=== PATIENT | female | born 1975 | race Caucasian/White ===

== ENCOUNTER 2019-05-11 08:26 | Outpatient (CLI) | payer OTHER, SELFPAY ==
--- NOTE | ~2019-05-11 | US_ITS ---
EXAMINATION: US pelvic complete w TV DATE: 05/11/2019 09:09 INDICATION: Pelvic pain Comparison:No prior studies for comparison. TECHNIQUE: Multiple transabdominal and endovaginal sonographic images of the pelvis performed. FINDINGS: The uterus and ovaries are surgically absent. Note pelvic masses or fluid collections. Ther e is no free fluid in the pelvis. There are no abnormal masses seen on either side. IMPRESSION: 1. Unremarkable pelvic ultrasound post hysterectomy. Reviewed, dictated and finalized at location B. P PRESIDENT
== END 2019-05-11 08:27 | disposition home or self-care (01) ==
LOC: ANHIMG 08:38
PROVIDERS: PCP Family Medicine; Visit Provider Family Medicine
DX: R10.2 Pelvic and perineal pain (principal); M81.0 Age-related osteoporosis without current pathological fracture
CPT/HCPCS: 76830; 76856

== ENCOUNTER 2019-05-26 13:48 | Emergency (ER) | payer OTHER, SELFPAY ==
--- NOTE | ~2019-05-26 | XR_ITS ---
EXAMINATION: XR chest 2V 05/26/2019 14:23 INDICATION: Chest pain PROCEDURE: 2 view chest COMPARISON: 07/21/2016 FINDINGS: The lungs are clear. The cardiomediastinal silhouette is within normal limits. There are no pleural effusions. There is no pneumothorax suspected. IMPRESSION: 1: NO ACUTE CARDIOPULMONARY DISEASE. Reviewed, dictated and finalized at location A.
[2019-05-26 13:52] VITALS: BP 136/82; PULSE 82; RESP 20; TEMP 36.2; O2SAT 100
--- NOTE | 2019-05-26 13:54 | ECG_ITS ---
Measurements Intervals [place] Rate: 69 P: 54 [place]: 169 QRS: 11 QRSD: 113 T: 40 QT: 417 QTc: 449 Interpretive Statements SINUS RHYTHM FREQUENT ATRIAL PREMATURE COMPLEXES INTRAVENTRICULAR CONDUCTION DELAY ABNORMAL ECG Electronically Signed On 05-26-2019 15:26:20 CDT by Tree Oliveira D.O.
[2019-05-26 13:55] VITALS: O2SAT 100
[2019-05-26 14:11] LABS: Basophils Absolute Auto 0.1 K/mm3 (0.0-0.1); Basophils Percent Auto 0.6 % (0.2-1.2); Eosinophils Absolute Auto 0.1 K/mm3 (0-0.3); Eosinophils Percent Auto 0.9 % (0-4.4); Hematocrit 43.1 % (37.0-47.0); Hemoglobin 14.5 g/dL (12.0-15.0); Immature Granulocyte Absolute 0.03 K/mm3 (0.00-0.031); Immature Granulocyte Percent A 0.3 % (0-0.5); Lymphocytes Absolute Auto 3.96 K/mm3 (0.9-3.2); Lymphocytes Percent Auto 33.2 % (18.3-44.2); Mean Corpuscular HGB Conc 33.6 g/dl (32-36); Mean Corpuscular Hemoglobin 31.5 pg (26-34); Mean Corpuscular Volume 93.7 fl (80-100); Mean Platelet Volume 9.3 fl (7.4-10.4); Monocytes Absolute Auto 0.6 K/mm3 (0.1-0.6); Monocytes Percent Auto 4.8 % (2.6-8.5); Neutrophils Absolute Auto 7.2 K/mm3 (1.3-6.7); Neutrophils Percent Auto 60.2 % (45.5-73.1); Platelet Count Result 262 k/mm3 (150-375); Red Cell Distribution Width 12.6 % (11.5-14.5); White Blood Count 11.9 K/mm3 (4.5-10.0)
[2019-05-26 14:21] LABS: Prothrombin Time 12.9 Seconds (11.1-14.7)
[2019-05-26 14:22] LABS: Partial Thromboplastin Time 28.4 SECONDS (22.3-36.8)
[2019-05-26 14:23] LABS: Blood Urea Nitrogen 12 mg/dL (7-17); Carbon Dioxide 30 mmol/L (22-30); Chloride 100 mmol/L (98-107); Estimated Glomerular Filt Rate > 60; Glucose 92 mg/dL (65-105); Potassium 3.3 mmol/L (3.4-5.0); Sodium 137 mmol/L (137-145)
[2019-05-26 14:35] LABS: Troponin I < 0.012 ng/mL (0.000-0.034)
[2019-05-26 14:37] LABS: D Dimer 0.27 ug/mL (<0.48)
[2019-05-26 14:46] LABS: Amphetamine Screen Urine Negative (Negative); Barbiturate Screen Urine Negative (Negative); Benzodiazepines Screen Urine Negative (Negative); Cannabinoid Screen Urine Positive (Negative); Cocaine Screen Urine Negative (Negative); Methadone Screen Urine Negative (Negative); Opiate Screen Urine Positive (Negative); Phencyclidine Screen Urine Negative (Negative)
[2019-05-26] MEDS: ASPIRIN 81 MG CHEWABLE TABLET 324 MG PO (15:28)
--- NOTE | 2019-05-26 15:32 | ED.CHESTPAIN ---
HPI - Chest Pain General Chief Complaint: Chest Pain Stated Complaint: chest pain Time Seen by Provider: 05/26/19 13:51 Source: patient Mode of arrival: ambulatory Limitations: no limitations History of Present Illness HPI narrative: Patient is a 44-year-old female who presents to emergency department for evaluation of left-sided chest pain and pressure that began 45 minutes prior to arrival patient notes a month ago she had had a similar symptom that resolved patient on arrival to emergency department per EMS notes mild discomfort has not taken anything for her symptoms. Patient denies any URI symptoms injury or trauma nothing is made the pain better or worse. Related Data Home Medications Medication Instructions Recorded Confirmed albuterol sulfate [ProAir HFA] INHALATION 05/26/19 05/26/19 fluoxetine mg 05/26/19 furosemide 05/26/19 hydrocodone-acetaminophen 05/26/19 levothyroxine 05/26/19 trazodone 05/26/19 Allergies Allergy/AdvReac Type Severity Reaction Status Date / Time propoxyphene Allergy Mild Unknown Verified 05/26/19 13:56 Penicillins Allergy Unknown ITCHING, Verified 05/26/19 13:56 RED BLOTCHES Review of Systems Review of Systems: All systems reviewed & are unremarkable except as noted in HPI and below PMFSH Past Medical History Medical History (Updated 05/26/19 @ 18:17 by Guanako Helton PA-C) Thyroid disease Surgical History Surgical History (Updated 05/26/19 @ 15:38 by Guanako Helton PA-C) History of thyroid surgery Social History Social History Smoking status: Smoker, status unknown Second hand tobacco smoke exposure: Yes Alcohol intake: never Exam Narrative: Exam Narrative: GENERAL: Well-appearing, well-nourished, and in no acute distress. HEAD: Normocephalic, atraumatic. EYES: PERRLA and EOMI. ENT: Nares clear, no rhinorrhea or epistaxis. Mucous membranes moist. CHEST: Clear to auscultation. No respiratory distress. No wheezes rales or rhonchi HEART: Regular rate and rhythm. No murmur heard. Normal peripheral pulses. ABDOMEN: Soft, nontender, nondistended EXTREMITIES: Normal range of motion. No edema. SKIN: Warm, dry, no rash. NEURO: No focal deficits. Alert and oriented x3. Cranial nerves II through XII grossly intact PSYCH: Normal mood and affect. Course Course Emergency Course: Patient in the room aware of case findings treatment plan and diagnosis agreeing to follow-up as directed or to return if symptoms worsen or concerns. Patient resting comfortably in the room denying any pain at this time Vital Signs Vital signs: Vital Signs Temperature 97.1 F L 05/26/19 13:52 Pulse Rate 82 05/26/19 13:52 Respiratory Rate 20 05/26/19 13:52 Blood Pressure 136/82 05/26/19 13:52 Pulse Oximetry 100 05/26/19 13:52 Temperature 97.1 F L 05/26/19 13:52 Pulse Rate 70 05/26/19 15:49 Respiratory Rate 20 05/26/19 15:49 Blood Pressure 102/80 05/26/19 15:49 Pulse Oximetry 95 05/26/19 15:49 MDM - Chest Pain MDM Narrative Medical decision making narrative: Patients EKGs and labs are without significant high risk changes. Cardiac risk factors were reviewed. 2 negative troponins were obtained. Cardiology was consulted and recommends that the patient can follow-up on an outpatient basis. Patient has a heart score of 3 based on the history provided and the results obtained. patient is felt likely to be low risk for ACS and reasonable for further risk stratification testing as an outpatient. Pain was not sudden or maximal in onset without tearing or ripping. quality. No other signs or symptoms to suggest aortic dissection. A low-risk Wells criteria is noted. PE is felt to be unlikely. No pneumonia or URI symptoms were seen on evaluation today. Patient is felt to be reasonable for continued evaluation as an outpatient. Lab Data Result diagrams: 05/26/19 13:59
[2019-05-26] MEDS: NITROGLYCERIN SL 0.4 MG TABLET SUBLINGUAL ×2 (15:37→15:48)
--- NOTE | 2019-05-26 15:38 | PC.NURSE ---
PT CALLED C/O CHEST PRESSURE. 1, 0.4MG SL NITRO ADMINISTERED PER EDP ORDER, EDP MADE AWARE.
--- NOTE | 2019-05-26 15:48 | PC.NURSE ---
2nd sl nitro administered from cp 05/14. BP 102/80, hr 74.
[2019-05-26 15:49] VITALS: BP 102/80; PULSE 70; RESP 20; O2SAT 95
[2019-05-26 17:12] LABS: Alanine Aminotransferase 11 U/L (4-35); Albumin Level 4.2 g/dL (3.5-5.1); Alkaline Phosphatase 39 U/L (38-126); Aspartate Amino Transferase 19 U/L (14-36); Bilirubin,Total 0.6 mg/dL (0.2-1.3); Blood Urea Nitrogen 12 mg/dL (7-17); Calcium 8.8 mg/dL (8.4-10.2); Carbon Dioxide 30 mmol/L (22-30); Chloride 102 mmol/L (98-107); Estimated Glomerular Filt Rate > 60; Glucose 84 mg/dL (65-105); Lipase 191 U/L (23-300); Potassium 3.7 mmol/L (3.4-5.0); Sodium 138 mmol/L (137-145)
[2019-05-26 17:23] LABS: Troponin I < 0.012 ng/mL (0.000-0.034)
--- NOTE | 2019-05-26 17:36 | ECG_ITS ---
Measurements Intervals [place] Rate: 63 P: 46 [place]: 170 QRS: 4 QRSD: 100 T: 32 QT: 420 QTc: 430 Interpretive Statements SINUS RHYTHM ATRIAL PREMATURE COMPLEXES BORDERLINE ECG Electronically Signed On 05-27-2019 7:55:05 CDT by Tree Oliveira D.O.
[2019-05-26 18:27] VITALS: BP 109/70; PULSE 80; RESP 20; TEMP 36.7; O2SAT 99
== END 2019-05-26 18:29 | disposition home or self-care (01) ==
PROVIDERS: Emergency Medicine Emergency Medical Services; Emergency Provider Emergency Medicine; PCP Family Medicine
DX: R07.89 Other chest pain (principal); I45.9 Conduction disorder, unspecified; I49.1 Atrial premature depolarization
CPT/HCPCS: 36415; 71046; 80048; 80053; 80307; 83690; 84484; 85025; 85380; 85610; 85730; 93005; 99284; A9270

== ENCOUNTER 2019-09-26 01:53 | Outpatient (CLI) | payer OTHER, SELFPAY ==
[2019-09-26 18:38] LABS: SARS-CoV-2 RNA PCR Negative
== END 2019-09-26 01:54 | disposition home or self-care (01) ==
LOC: ANHCOVIDDT 01:53
PROVIDERS: PCP Family Medicine; Visit Provider Specialist
DX: Z01.812 Encounter for preprocedural laboratory examination (principal); Z11.59 Encounter for screening for other viral diseases
CPT/HCPCS: 87635; C9803; U0003

== ENCOUNTER 2019-09-28 05:36 | Day surgery (SDC) | payer OTHER, SELFPAY ==
[2019-09-28] VITALS (8 sets, daily range): BP systolic 101–119; BP diastolic 65–98; PULSE 49–67; RESP 12–23; TEMP 36.4–36.8; O2SAT 93–96; BMI 23.6
[2019-09-28 08:52] LABS: Basophils Absolute Auto 0.1 K/mm3 (0.0-0.1); Basophils Percent Auto 0.6 % (0.2-1.2); Eosinophils Absolute Auto 0.2 K/mm3 (0-0.3); Eosinophils Percent Auto 1.5 % (0-4.4); Hematocrit 41.6 % (37.0-47.0); Hemoglobin 14.2 g/dL (12.0-15.0); Immature Granulocyte Absolute 0.04 K/mm3 (0.00-0.031); Immature Granulocyte Percent A 0.4 % (0-0.5); Lymphocytes Absolute Auto 2.76 K/mm3 (0.9-3.2); Lymphocytes Percent Auto 25.5 % (18.3-44.2); Mean Corpuscular HGB Conc 34.1 g/dl (32-36); Mean Corpuscular Hemoglobin 31.5 pg (26-34); Mean Corpuscular Volume 92.2 fl (80-100); Mean Platelet Volume 9.3 fl (7.4-10.4); Monocytes Absolute Auto 0.6 K/mm3 (0.1-0.6); Monocytes Percent Auto 5.1 % (2.6-8.5); Neutrophils Absolute Auto 7.2 K/mm3 (1.3-6.7); Neutrophils Percent Auto 66.9 % (45.5-73.1); Platelet Count Result 255 k/mm3 (150-375); Red Blood Count 4.51 M/mm3 (4.2-5.4); Red Cell Distribution Width 12.7 % (11.5-14.5); White Blood Count 10.8 K/mm3 (4.5-10.0)
[2019-09-28 09:01] LABS: Prothrombin Time 12.8 Seconds (11.1-14.7)
[2019-09-28 09:05] LABS: Anion Gap 9.5 mmol/L (7-16); Blood Urea Nitrogen 15 mg/dL (7-17); Calcium 8.8 mg/dL (8.4-10.2); Carbon Dioxide 27 mmol/L (22-30); Chloride 107 mmol/L (98-107); Estimated Glomerular Filt Rate > 60; Glucose 87 mg/dL (65-105); Potassium 4.5 mmol/L (3.4-5.0); Sodium 139 mmol/L (137-145)
--- NOTE | 2019-09-28 10:17 | WPDMODSED ---
Moderate Sedation Note-Pt Data Patient Data Diagnosis: 44-year-old patient with chest pain both with and without exertion of recent onset. Chronic cigarette smoking. Stress echocardiogram done as an outpatient was echocardiographically abnormal. Present Complaint: Intermittent chest pain Procedure to be performed/Plan: left heart catheterization Allergies Allergy/AdvReac Type Severity Reaction Status Date / Time propoxyphene Allergy Mild Unknown Verified 05/26/19 13:56 Penicillins Allergy Unknown ITCHING, Verified 05/26/19 13:56 RED BLOTCHES Home Medications Medication Instructions Recorded Confirmed Type aspirin [Aspirin Low Dose] 81 mg PO DAILY #30 tablet 05/26/19 09/28/19 Rx fluoxetine mg 05/26/19 History levothyroxine 05/26/19 History alprazolam 0.5 mg PO PRN PRN 09/28/19 09/28/19 History Current Medications: Active Medications Sodium Chloride (Normal Saline Iv) 500 mls @ 100 mls/hr IV CONT .Q5H [place] Sedation/Anesthesia: No previous sedation/anesthesia problems (including family history). [facility] Past Medical History Medical History (Updated 05/27/19 @ 00:00 by Lesly Mcfadden) Thyroid disease Surgical History Surgical History (Updated 05/26/19 @ 15:38 by Guanako Helton PA-C) History of thyroid surgery Social History Social History Smoking status: Smoker, status unknown Second hand tobacco smoke exposure: Yes Alcohol intake: never Mod Sed Physical Exam Physical Exam Pre Procedural Exam: Normal: Appearance, Nose, Neck, Throat, Airway, Heart Size, Heart Rate, Heart Rhythm, Neuro Exam and Extremities and Variation: Lungs ( breath sounds moderately diminished in both lung traylor) Hours since solid foods: 12 Hours since liquid intake: 12 Internal Medicine - PN: Obj Da Vital Signs Vital Signs: Vital Signs - 24 hr 09/28/19 10:08 Temperature 36.4 C Pulse Rate 62 Respiratory Rate 14 Blood Pressure 101/67 Pulse Oximetry 96 Meds/Results Medications: Active Medications Generic Name Dose Route Start Last Admin Trade Name Freq PRN Reason Stop Dose Admin Sodium Chloride 500 mls @ 100 mls/hr 09/28/19 06:00 Normal Saline Iv IV CONT .Q5H [place] Labs CBC & Chem 7: 09/28/19 08:42 09/28/19 08:42 Labs: Laboratory Results - last 24 hr 09/28/19 09/28/19 09/28/19 08:42 08:42 08:43 WBC 10.8 H RBC 4.51 Hgb 14.2 Hct 41.6 MCV 92.2 MCH 31.5 MCHC 34.1 RDW 12.7 Plt Count 255 MPV 9.3 Immature Gran % (Auto) 0.4 Neut % (Auto) 66.9 Lymph % (Auto) 25.5 Marion % (Auto) 5.1 Eos % (Auto) 1.5 Baso % (Auto) 0.6 Lymph # (Auto) 2.76 Marion # (Auto) 0.6 Eos # (Auto) 0.2 Baso # (Auto) 0.1 Abs Immat Gran (auto) 0.04 H Absolute Neuts (auto) 7.2 H Absolute Nucleated RBC 0.0 Nucleated RBC % 0.0 PT 12.8 INR 1.0 Sodium 139 Potassium 4.5 Chloride 107 Carbon Dioxide 27 Anion Gap 9.5 BUN 15 Creatinine 0.70 Estim Creat Clear Calc Not Reportable Estimated GFR > 60 Glucose 87 Calcium 8.8 ASA Classification/Sedation ASA Classification/Sedation ASA Class: II Emergent: No Risks: Risks, benefits and alternatives explained and patient/family accepted plan for sedation. Patient re-evaluated immediately prior to sedation.
--- NOTE | 2019-09-28 10:57 | WPDCARDPROC ---
Cardiac Cath Procedure Note Date of procedure:: 09/28/19 Performing physician:: Jefferson Jaramillo MD Indication:: atypical chest pain, abnormal stress echo Brief clinical history:: this is a 44-year-old woman with a history of smoking who has been experiencing intermittent chest pain and was referred for consultation. She had a [facility]. A stress echocardiogram was done which demonstrated evidence of LV enlargement following exercise raising concern for possibility of ischemia. For this reason angiography was recommended Procedure Procedure performed:: left heart catheterization with left ventriculography and coronary angiography Angio-Seal to right femoral artery Sedation/Medication given:: fentanyl 50 mg Versed 2 mg case start time 10:40 a.m. case end time 10:51 a.m. sedation provided by Ac Viera RN, trained observer Access site:: right femoral artery Estimated blood loss:: 15-20 cc Procedure note:: patient was brought to the cardiac catheterization lab in the postabsorptive state right femoral triangle was prepared in the usual fashion anesthesia was provided with 1% lidocaine infiltrated locally. After this the common femoral artery was punctured using the modified Seldinger technique and a 5 Bangladeshi vascular sheath was placed. After this left heart catheterization was carried out. A 5 Bangladeshi angled pigtail catheter cord left-sided dynamics and inject the left ventriculogram in the AGEE projection. Following this the right coronary was injected using a 5 Bangladeshi JR4 catheter and lastly the left coronary was injected using a 5 Bangladeshi FL4 catheter. Following this cineangiograms were reviewed and the case was terminated. And cineangiogram was done of the femoral artery through the sheath in a Angio-Seal device was then deployed at the access site with good hemostasis. Patient left the labeler with no evidence of a groin hematoma and no apparent complications. Findings:: Hemodynamics: Central aortic pressure is 134/60 left ventricle 134/0 end-diastolic of 12. No gradient upon pullback across the aortic valve left ventricle: The LV is normal in size all segments contract very well the global ejection fraction visually estimated at 65% no regional wall motion abnormalities. Left main the left main coronary artery is widely patent and relatively short the LAD is a medium caliber vessel extending down to around the apex the LAD is diagonal and septal branches are smooth and angiographically normal in appearance. The circumflex is a moderate caliber vessel giving rise to the marginal branches. The circumflex system marginal branches are smooth and angiographically normal in appearance. Right coronary artery is large in caliber dominant to the posterior circulation widely patent smooth and angiographically normal in appearance. Conclusion:: 1. Right coronary dominant circulation with no evidence of coronary artery disease 2. normal left ventricular systolic function 3. Angio-Seal to right femoral artery 4. false positive stress test and noncardiac chest pain based on these findings Jefferson Jaramillo MD [facility]
--- NOTE | 2019-09-28 13:15 | SUR.PHASEII ---
Patient ambulated to bathroom and chair no complaints of pain or signs of bleeding/ hematoma.
== END 2019-09-28 14:32 | disposition home or self-care (01) ==
PROVIDERS: PCP Family Medicine; Visit Provider Specialist
PROC: 4A023N7 Measurement of Cardiac Sampling and Pressure, Left Heart, Percutaneous Approach (ICD-10-PCS; CPT 93452; principal; 2019-09-28 10:00)
DX: R07.89 Other chest pain (principal); R94.39 Abnormal result of other cardiovascular function study; F17.210 Nicotine dependence, cigarettes, uncomplicated
CPT/HCPCS: 36415; 80048; 85025; 85610; 93458; C1760; C1887; C1894; G0269; J1644; J2250; J3010; J7040

== ENCOUNTER 2021-10-15 16:25 | Outpatient (CLI) | payer OTHER, SELFPAY ==
--- NOTE | ~2021-10-15 | DEXA_ITS ---
Bone Density Report Name: MARKUS FELTCHER Age: 46 Sex: Female Ethnicity: White Date of : 1975 Indication: postmenopausal; height loss; hysterectomy; rheumatoid arthritis; Referring Provider: DILEEP, LALIT Study: Bone densitometry was performed. Exam Date: October 15, 2021 Accession number: [id number] Bone Density: Region BMD T-score Z-score Classification AP Spine(L1-L4) 0.804 -2.2 -1.6 Osteopenia Femoral Neck (Left) 0.580 -2.4 -1.8 Osteopenia Total Hip (Left) 0.759 -1.5 -1.1 Osteopenia Femoral Neck (Right) 0.588 -2.4 -1.7 Osteopenia Total Hip (Right) 0.767 -1.4 -1.0 Osteopenia Total Hip Mean 0.763 -1.5 -1.1 Osteopenia World Health Organization criteria for BMD impression classify patients as: Normal (T-score at or above -1.0), Osteopenia (T-score between -1.0 and -2.5), or Osteoporosis (T-score at or below -2.5). 10-year Fracture Risk(1): Major Osteoporotic Fracture 7.8% Hip Fracture 2.6% Reported Risk Factors: [place] (), Neck BMD=0.580, BMI=23.0, smoking, rheumatoid arthritis (1) FRAX(R) Version 3.08. Fracture probability calculated for an untreated patient. Fracture probability may be lower if the patient has received treatment. Clinical Information Provided by Patient: Smokes Has rheumatoid arthritis Has the following medical conditions: Hysterectomy, THYROIDECTOMY Patient maximum height was 67 Menopause Age: 21 Drinks caffeinated beverages Onset of menses at age 12 Number of children 2 Impression: The patient has low bone mass, based on the Left Femoral Neck T-score. The patient has an estimated ten-year risk of hip fracture of 2.6% and an estimated ten-year risk of major fracture of 7.8%, based on the WHO FRAX algorithm. The patient has risk factors, including: smoking. Discussion: BONE DENSITY IS LOW AT ONE OR MORE SKELETAL SITES. This patient's lowest T-score is low at one or more skeletal sites. It meets the World Health Organization's (WHO) criteria for ?low bone mass? (T-score between -1.0 and -2.5). The patient's 10-year risk of fracture as calculated by FRAX is less than the threshold where pharmacological therapy is recommended by the National Osteoporosis Foundation (NOF). However, all treatment decisions require clinical judgment and consideration of individual patient factors, including patient preferences, comorbidities, previous drug use, risk factors not captured in the FRAX model (e.g., frailty, falls, vitamin D deficiency, increased bone turnover, interval significant decline in bone density) and possible under or overestimation of fracture risk by FRAX. The patient should follow a healthful lifestyle (good nutrition with adequate calcium and vitamin D, and appropriate weight-bearing exercise). Follow-Up: Consider repeating this saud
--- NOTE | ~2021-10-15 | MM_ITS ---
EXAMINATION: MM screening rian BI w nhung HISTORY: Screening mammogram, family history of breast cancer in her mother. TECHNIQUE: Craniocaudal and mediolateral oblique 3-D tomosynthesis images were obtained and synthetic 2-D images were generated. CAD analysis was submitted and interpreted. COMPARISON: Prior mammograms dating back to 07/03/2013 BREAST PARENCHYMAL COMPOSITION: There are scattered areas of fibroglandular density. FINDINGS: There is no suspicious mass, calcification, or architectural distortion to suggest malignan cy in either breast. There has been no suspicious interval change. IMPRESSION: 1. No mammographic evidence of malignancy. 2. Recommend routine screening mammography in one year. BI-RADS Category 1: Negative Reviewed, dictated and finalized at location A.
== END 2021-10-15 16:26 | disposition home or self-care (01) ==
PROVIDERS: PCP Family Medicine; Visit Provider Physician Assistant
DX: Z12.31 Encounter for screening mammogram for malignant neoplasm of breast (principal); Z78.0 Asymptomatic menopausal state; M85.89 Other specified disorders of bone density and structure, multiple sites
CPT/HCPCS: 77063; 77067; 77080

== ENCOUNTER 2022-01-27 14:51 | Outpatient (CLI) | payer OTHER, SELFPAY ==
--- NOTE | ~2022-01-27 | US_ITS ---
US renal BI 01/27/2022 15:19 Procedure: Realtime transabdominal ultrasound of the kidneys and bladder. Indication: Increased urination Comparison: No prior studies for comparison. Findings: Renal echotexture is normal bilaterally without hydronephrosis, contour deforming mass or r enal calculus. The right kidney measures 10.9 cm and left kidney measures 12.6 cm. Bladder within no rmal limits. Impression: 1: Unremarkable renal ultrasound. No stones, masses or hydronephrosis. Reviewed, dictated and finalized at location B. R LAYER TILE Impression: 1: Unremarkable renal ultrasound. No stones, masses or hydronephrosis.
== END 2022-01-27 14:52 | disposition home or self-care (01) ==
PROVIDERS: PCP Physician Assistant; Visit Provider Physician Assistant
DX: R35.0 Frequency of micturition (principal)
CPT/HCPCS: 76775

== ENCOUNTER 2022-01-28 15:48 | Emergency (ER) | payer OTHER, SELFPAY ==
[2022-01-28 15:50] VITALS: BP 138/70; PULSE 96; RESP 16; TEMP 36.4; O2SAT 99
[2022-01-28] MEDS: KETOROLAC 30 MG/ML VIAL (*BKC) IV PUSH (16:32)
[2022-01-28 16:34] LABS: Basophils Absolute Auto 0.1 K/mm3 (0.0-0.1); Basophils Percent Auto 0.6 % (0.2-1.2); Eosinophils Absolute Auto 0.1 K/mm3 (0-0.3); Eosinophils Percent Auto 0.7 % (0-4.4); Hematocrit 42.2 % (37.0-47.0); Hemoglobin 14.4 g/dL (12.0-15.0); Immature Granulocyte Absolute 0.03 K/mm3 (0.00-0.031); Immature Granulocyte Percent A 0.3 % (0-0.5); Lymphocytes Absolute Auto 3.63 K/mm3 (0.9-3.2); Lymphocytes Percent Auto 32.2 % (18.3-44.2); Mean Corpuscular HGB Conc 34.1 g/dl (32-36); Mean Corpuscular Hemoglobin 31.4 pg (26-34); Mean Corpuscular Volume 91.9 fl (80-100); Mean Platelet Volume 9.5 fl (7.4-10.4); Monocytes Absolute Auto 0.6 K/mm3 (0.1-0.6); Monocytes Percent Auto 5.7 % (2.6-8.5); Neutrophils Absolute Auto 6.8 K/mm3 (1.3-6.7); Neutrophils Percent Auto 60.5 % (45.5-73.1); Platelet Count Result 296 k/mm3 (150-375); Red Blood Count 4.59 M/mm3 (4.2-5.4); Red Cell Distribution Width 12.8 % (11.5-14.5); White Blood Count 11.3 K/mm3 (4.5-10.0)
[2022-01-28 16:39] LABS: Appearance Urine Slightly Cloudy (Clear); Bilirubin Urine 1+ (Negative); Blood Urine Negative (Negative); Color Urine Yellow (Yellow); Glucose Urine UA Negative (Negative); Ketones Urine Trace mg/dL (Negative); Leukocyte Esterase Ur Negative LEU/UL (Negative); Nitrate Urine Negative (Negative); Protein Urine Trace mg/dL (Negative); Urobilinogen Urine 0.2 mg/dL (<2.0)
[2022-01-28 16:42] LABS: Amorphous Sediment Urine Few; Bacteria Urine Trace /hpf; Mucus Urine Rare /lpf; RBC Urine 0-2 /hpf (0-2); Squamous Epithelial Cell Urine Rare /hpf (Few); WBC Urine 0-3 /hpf
[2022-01-28 16:43] LABS: Add Urine Microscopic? YES
[2022-01-28 16:44] LABS: Alanine Aminotransferase 17 U/L (6-35); Albumin Level 5.2 g/dL (3.5-5.1); Alkaline Phosphatase 27 U/L (38-126); Anion Gap 13 mmol/L (8-16); Aspartate Amino Transferase 34 U/L (14-36); Bilirubin,Total 0.8 mg/dL (0.2-1.3); Blood Urea Nitrogen 14 mg/dL (7-17); Calcium 9.4 mg/dL (8.4-10.2); Carbon Dioxide 28 mmol/L (22-30); Chloride 101 mmol/L (98-107); Estimated CRCL calculation 76 ml/min; Estimated Glomerular Filt Rate > 60; Glucose 75 mg/dL (65-110); Lipase 67 U/L (23-300); Potassium 3.9 mmol/L (3.4-5.0); Sodium 142 mmol/L (137-145)
[2022-01-28 17:50] VITALS: BP 122/78; PULSE 65; RESP 18; O2SAT 99
--- NOTE | 2022-01-28 18:51 | PC.NURSE ---
patient out at nursing statin complaining that no one has come in here . patient states she is ready to go. ERP made aware.
--- NOTE | 2022-01-28 18:58 | PC.NURSE ---
patient left treatment area prior to being discharged
--- NOTE | 2022-01-28 19:08 | ED.ABDPAIN ---
HPI - Abdominal Pain General Chief Complaint: Abdominal Pain Stated Complaint: abd and groin pain Time Seen by Provider: 01/28/22 15:57 History of Present Illness HPI narrative: Patient is a 46-year-old female who presents to the ER with bilateral flank pain. Ongoing over the last week. Contacted her PCP and had a urinalysis performed that did not show UTI. She had an outpatient ultrasound performed yesterday but she does not know the results. Symptoms persist that she came in for further evaluation. Radiates into the abdomen bilaterally. Reports normal bowel movements. No urinary frequency or dysuria. No nausea or vomiting. Cannot describe any aggravating or alleviating factors. Has not had similar pain previously. Patient without lower extremity numbness or tingling. Related Data Home Medications Medication Instructions Recorded Confirmed fluoxetine 60 mg tablet mg 05/26/19 levothyroxine 150 mcg tablet 05/26/19 alprazolam 0.5 mg tablet 0.5 mg PO PRN PRN Anxiety 09/28/19 09/28/19 Allergies Allergy/AdvReac Type Severity Reaction Status Date / Time propoxyphene Allergy Mild Unknown Verified 04/01/21 14:16 Penicillins Allergy Unknown ITCHING, Verified 04/01/21 14:16 RED BLOTCHES Review of Systems Review of Systems: All systems reviewed & are unremarkable except as noted in HPI and below Constitutional: Constitutional: Denies chills and Denies fever(s) ENT: Denies nasal congestion and Denies sore throat Cardiovascular: Cardiovascular: Denies chest pain, Denies rapid heart rate and Denies radiating jaw, neck or arm pain Respiratory: Respiratory: Denies cough and Denies dyspnea Gastrointestinal: Gastrointestinal: Denies nausea and Denies vomiting Genitourinary: Genitourinary: Denies hematuria, Denies nocturia, Denies dysuria and Reports flank pain Musculoskeletal: Musculoskeletal: Reports back pain, Denies joint swelling and Denies muscle cramps Neurologic: Denies headache(s), Denies focal weakness and Denies numbness PMF Past Medical History Medical History (Updated 01/28/22 @ 19:09 by Ramon De Los Santos MD) Thyroid disease Surgical History Surgical History (System 04/01/21 @ 14:16 by Baltazar Pulido) History of thyroid surgery Social History Social History (System 04/01/21 @ 14:16 by Baltazar Pulido) Smoking status: Smoker, status unknown Second hand tobacco smoke exposure: Yes Alcohol intake: never Exam Narrative: GENERAL: Well-appearing, well-nourished, and in no acute distress. HEAD: Normocephalic, atraumatic. CHEST: Clear to auscultation. No respiratory distress. HEART: Regular rate and rhythm. Normal peripheral pulses. ABDOMEN: Soft, nontender, nondistended. Back: No midline tenderness to T/L-spine. There is paraspinal muscular tenderness bilaterally in the low thoracic region. No abrasions or contusions. EXTREMITIES: Normal range of motion. No edema. SKIN: Warm, dry, no rash. NEURO: Alert and oriented x3. PSYCH: Normal mood and affect. Course Course Emergency Course: Patient left before discharge paperwork to be printed and discharge diagnosis can be given. She did receive Toradol for her pain. Outpatient imaging was reviewed and unremarkable. Vital Signs Vital signs: Vital Signs Temperature 97.5 F L 01/28/22 15:50 Pulse Rate 96 01/28/22 15:50 Respiratory Rate 16 01/28/22 15:50 Blood Pressure 138/70 01/28/22 15:50 Pulse Oximetry 99 01/28/22 15:50 Temperature 97.5 F L 01/28/22 15:50 Pulse Rate 65 01/28/22 17:50 Respiratory Rate 18 01/28/22 17:50 Blood Pressure 122/78 01/28/22 17:50 Pulse Oximetry 99 01/28/22 17:50 MDM - Abdominal Pain Lab Data Result diagrams: 01/28/22 16:27 01/28/22 16:27 Labs: Lab Results 01/28/22 01/28/22 01/28/22 Range/Units 16:27 16:27 16:34 WBC 11.3 H (4.5-10.0) K/mm3 RBC 4.59 (4.2-5.4) M/mm3 Hgb 14.4 (12.0-15.0) g/dL Hct 42.2 (3
== END 2022-01-28 19:01 | disposition home or self-care (01) ==
PROVIDERS: Emergency Provider Emergency Medicine; PCP Physician Assistant
DX: M54.6 Pain in thoracic spine (principal); E07.9 Disorder of thyroid, unspecified
CPT/HCPCS: 36415; 80053; 81001; 83690; 85025; 96374; 99284; J1885

== ENCOUNTER 2022-01-30 09:07 | Emergency (ER) | payer OTHER, SELFPAY ==
--- NOTE | ~2022-01-30 | XR_ITS ---
XR hip LT 2V w AP pelvis DATE: 01/30/2022 10:17 INDICATION: Left hip pain. No injury. TECHNIQUE: AP pelvis. AP and lateral views of left hip. COMPARISON: None FINDINGS: Mild bilateral hip osteoarthritis. No pelvic fracture or bone destruction. The pubic symphysis and sacroiliac joints are intact. No fracture or dislocation, avascular necrosis or bone destruction of the left hip. IMPRESSION: Mild bilateral hip osteoarthritis Reviewed, dictated and finalized at location A. 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
[2022-01-30 09:15] VITALS: BP 107/70; PULSE 69; RESP 18; TEMP 37.1; O2SAT 99
--- NOTE | 2022-01-30 09:56 | ED.LOWEXIN ---
HPI - Extremity Injury (Lower) General Chief Complaint: Back Pain/Injury Stated Complaint: Lower Back , Left Hip Pain Time Seen by Provider: 01/30/22 09:57 Source: patient Mode of arrival: ambulatory Limitations: no limitations History of Present Illness HPI Narrative: 46 y/o female presented for c/o left lower back and hip pain for over one week. Pain from mid lower back radiates to left anterior upper leg. Patient has had evaluation with pcp for possible uti/renal stone. States tests have been negative. Patient was seen in ER 01/28/22 (2 days ago) for similar complaints, dx back pain. Taking tylenol and ibuprofen for symptoms. Pain 6/10, worse when sitting and lifting the leg. 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 Denies numbness, tingling, weakness of the lower extremity. Related Data Home Medications Medication Instructions Recorded Confirmed fluoxetine 60 mg tablet 60 mg PO DAILY 05/26/19 01/30/22 levothyroxine 150 mcg tablet 150 mcg PO DAILY 05/26/19 01/30/22 alprazolam 0.5 mg tablet 0.5 mg PO PRN PRN Anxiety 09/28/19 01/30/22 acitretin 25 mg capsule 25 mg PO DIRECTED 01/30/22 01/30/22 bupropion HCl 150 mg tablet,12 hr 150 mg PO DAILY 01/30/22 01/30/22 sustained-release buspirone 5 mg tablet 5 mg PO DAILY 01/30/22 01/30/22 trazodone 100 mg tablet 100 mg PO DAILY 01/30/22 01/30/22 Allergies Allergy/AdvReac Type Severity Reaction Status Date / Time propoxyphene Allergy Mild Unknown Verified 04/01/21 14:16 Penicillins Allergy Unknown ITCHING, Verified 04/01/21 14:16 RED BLOTCHES Review of Systems Review of Systems: CONSTITUTIONAL: Denies body aches, fever, chills EYES: Denies visual changes ENT: Denies rhinorrhea, congestion CARDIOVASCULAR: Denies chest pain, palpitations, or edema. RESPIRATORY: Denies cough or dyspnea. GASTROINTESTINAL: Denies abdominal pain, nausea, vomiting, or diarrhea. SKIN: Denies rash, itching, or wounds. MUSCULOSKELETAL: per HPI NEUROLOGIC: Denies headache, numbness, tingling, or weakness. PSYCH: Denies depression or anxiety. All systems reviewed & are unremarkable except as noted in HPI and below PMFSH Past Medical History Medical History Thyroid disease Surgical History Surgical History History of thyroid surgery Social History Social History Smoking status: Smoker, status unknown Second hand tobacco smoke exposure: Yes Alcohol intake: never Comments At time of signature, I have reviewed and agree with nursing past medical, surgical, social and family history unless otherwise noted. Please see nursing chart for further information. There is no relevant family history pertinent to the presenting complaint Exam Narrative: GENERAL: Well-appearing CHEST: Speaks in full sentences. No respiratory distress. HEART: Regular rate and rhythm. Normal and equal peripheral pulses. MUSC: no vpt. ABD: soft, flat nontender; no CVA tenderness EXTREMITIES: LLE has normal strength and sensation, normal range of motion but endorses pain with movement at hip. Tender to left iliac crest and anterior upper thigh. No edema or ecchymosis. No open wounds, skin tenting, alignment normal, pulse palpable and equal bilaterally, skin warm, dry, pink. Capillary refill less than 3 seconds.Ambulates with slow steady gait SKIN: Warm, dry, no rash. NEURO: Alert and oriented x3. PSYCH: Normal mood and affect Course Course Emergency Course: Patient is aware of diagnosis, understands and agrees to treatment plan. Anticipatory guidance given. Patient agrees to follow-up as directed and is aware of reasons to seek care at the emergency department. Portions of this record may have been created with voice recognition software Level of Care: Express Care Visit Vital Signs Briseyda
== END 2022-01-30 11:16 | disposition home or self-care (01) ==
PROVIDERS: Emergency Provider Nurse Practitioner Family; PCP Physician Assistant
DX: M25.552 Pain in left hip (principal)
CPT/HCPCS: 73502; 99213; G0463

== ENCOUNTER 2022-02-21 12:17 | Outpatient (CLI) | payer OTHER, SELFPAY ==
--- NOTE | ~2022-02-21 | MR_ITS ---
MRI of the right hip Clinical history: Osteoarthritis Technique: Coronal T1-weighted, T2-weighted, and proton-density fat-sat images, and axial T1-weighted and proton-density fat-sat images were acquired through the pelvis. Coronal T2-weighted images and c oronal, axial, and sagittal proton-density fat-sat images were acquired through the right hip. Findings: There is no fracture, avascular necrosis, or transient osteoporosis of the proximal femora. Visualized bone marrow signals in the proximal femora and pelvic bones are unremarkable. There is mi nimal chondral thinning at the superior aspect of both hip joints. Bilateral hip joint spaces are pre served, without significant joint effusion. Suspected subtle, linear tear of the superior right aceta bular labrum. Bilateral SI joints are intact. Visualized musculature about the pelvis and right hip is unremarkable. No muscle atrophy or edema benito ntified. Visualized tendons are intact. No soft tissue mass or fluid collection seen. No evidence for bursitis. 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 Suspected subtle, linear tear of the superior right acetabular labrum. 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
--- NOTE | ~2022-02-21 | MR_ITS ---
MRI of the left hip Clinical history: Osteoarthritis Technique: Coronal T1-weighted, T2-weighted, and proton-density fat-sat images, and axial T1-weighted and proton-density fat-sat images were acquired through the pelvis. Coronal T2-weighted images and c oronal, axial, and sagittal proton-density fat-sat images were acquired through the left hip. Findings: There is no fracture, avascular necrosis, or transient osteoporosis of the proximal femora. Visualized bone marrow signals in the proximal femora and pelvic bones are unremarkable. There is mi nimal chondral thinning at the superior aspect of both hip joints. Bilateral hip joint spaces are pre served, without significant joint effusion. No left acetabular labral tear identified. Bilateral SI joints are intact. Visualized musculature about the pelvis and left hip is unremarkable. No muscle atrophy or edema iden tified. Visualized tendons are intact. No soft tissue mass or fluid collection seen. No evidence for bursitis. 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 No other significant findings. 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
== END 2022-02-21 12:18 | disposition home or self-care (01) ==
PROVIDERS: PCP Physician Assistant; Visit Provider Physician Assistant
DX: M16.0 Bilateral primary osteoarthritis of hip (principal); M94.252 Chondromalacia, left hip; M94.251 Chondromalacia, right hip
CPT/HCPCS: 73721

== ENCOUNTER 2022-03-11 14:00 | Outpatient (RCR) | payer OTHER, SELFPAY ==
--- NOTE | 2022-02-12 10:42 | PTOPEVAL1 ---
Assessment and note entered by Lola Rodriguez DPT Evaluation Information Assessment Status Evaluation Subjective Information Patient reports hip and LBP L>R. Pain started in January. Had bloodwork and x-ray done to rule out kidney issues. Has an MRI on 02/21/22. Highest 5/ 10 and lowest 2/10. Pain increases with activity like sit to stand, bending to pick something up. 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 Has still been doing ADL's at home. No return to MD scheduled currently. Reported Pain Level Pain Score 4: Self Report Assessment PT Clinical Summary The patient is presenting to skilled therapy with bilateral hip pain for approximately 1 month. She presents with decreased lower extremity and core strength, tenderness to palpation and SIJ impairments which are contributing to her pain and difficulty with activities like sit to stand and work activities. She will benefit from skilled therapy to address these impairments and return to prior level of function. Plan of Care Interventions Electrical Stimulation,Hot Pack/Cold Pack,Manual Therapy,Neuro Re-education,Patient/Caregiver Education,Therapeutic Activities,Therapeutic Exercise,Self-Care/Home Management PT Services Indicated Yes Treatment Frequency and 2 times a week for 4 weeks Duration These treatments will address the objective and functional deficits as defined above. The patient will be advanced safely and appropriately in order for the patient to progress towards his/her prior level of function. Additional exercises will be introduced and as well as a comprehensive home exercise program upon discharge, if needed, ?to ensure carryover of functional gains achieved in the clinic. This treatment plan has been reviewed and agreement upon by the patient.
--- NOTE | 2022-03-11 14:22 | PTOPDC ---
Assessment and note entered by Lola Rodriguez DPT Evaluation Information Assessment Status Progress Subjective Information Overall feeling some improvements with therapy. Pt has been able to return to work but after about 5 hours of standing she will have increased pain. Has been diagnosed with a right hip labral tear. Highest pain recently 8/10 and lowest 0/10. Feels she is not having pain as often. Feels confident with discharge from therapy today. Reported Pain Level Pain Score 0: Self Report Assessment PT Clinical Summary The patient has made good progress in therapy and has been able to return to work. She reports some pain after working more than 5 hours, but that she is not getting pain as often. She demonstrates improved LE strength, decreased pain with palpation and improved SIJ alignment. Due to her progress, plan for discharge at this time. She has been educated in a thorough HEP and to contact MD and/or PT as needed. Plan of Care PT Services Indicated No
== END 2022-03-11 14:37 | disposition home or self-care (01) ==
LOC: ANHPT 14:00
PROVIDERS: PCP Physician Assistant; Visit Provider Physician Assistant
DX: M25.552 Pain in left hip (principal)
CPT/HCPCS: 97110; 97140; 97161

== ENCOUNTER 2022-06-19 08:45 | Outpatient (CLI) | payer OTHER, SELFPAY ==
--- NOTE | ~2022-06-19 | XR_ITS ---
Clinical Indication: Lump under right breast, pectus carinatum PA and lateral views of the chest: Comparison: 05/26/2019 Findings: The lungs are clear, without evidence of focal consolidation or pleural effusion. Cardiome diastinal silhouette is within normal limits. Bones and soft tissues are unremarkable. Impression: Normal chest. Reviewed, dictated and finalized at location . Impression: Normal chest.
== END 2022-06-19 08:46 | disposition home or self-care (01) ==
LOC: ANHIMG 08:47
PROVIDERS: PCP Physician Assistant; Visit Provider Physician Assistant
DX: Q67.7 Pectus carinatum (principal)
CPT/HCPCS: 71046

== ENCOUNTER 2022-12-10 13:42 | Outpatient (CLI) | payer OTHER, SELFPAY ==
--- NOTE | ~2022-12-10 | MM_ITS ---
EXAMINATION: MM screening rian BI w nhung HISTORY: Screening mammogram, family history of breast cancer in her mother. TECHNIQUE: Craniocaudal and mediolateral oblique 3-D tomosynthesis images were obtained and synthetic 2-D images were generated. CAD analysis was submitted and interpreted. COMPARISON: 10/15/2021, 11/07/2018, 07/21/2016 BREAST PARENCHYMAL COMPOSITION: There are scattered areas of fibroglandular density. FINDINGS: No suspicious mass, calcification, or architectural distortion are identified in either annalisa ast to suggest malignancy. There has been no suspicious interval change. IMPRESSION: 1. No mammographic evidence of malignancy. 2. Recommend routine screening mammography in one year. BI-RADS Category 1: Negative Reviewed, dictated and finalized at location A.
== END 2022-12-10 13:43 | disposition home or self-care (01) ==
LOC: ANHIMG 13:43
PROVIDERS: PCP Physician Assistant; Visit Provider Physician Assistant
DX: Z12.31 Encounter for screening mammogram for malignant neoplasm of breast (principal)
CPT/HCPCS: 77063; 77067

== ENCOUNTER 2023-04-25 16:22 | Outpatient (CLI) | payer OTHER, SELFPAY ==
--- NOTE | ~2023-04-25 | CT_ITS ---
CT Scan of the Chest without Contrast: Clinical Indication: Lung cancer screening, personal history of nicotine dependence Technique: Contiguous sections were acquired throughout the chest without intravenous contrast. Dose reduction technique was used on this scan by utilizing automated exposure control and iterative recon struction technique. The dose-length product (DLP) was 62.73 mGy-cm. Findings: There is no evidence of any significant mediastinal, hilar or axillary lymphadenopathy. The mediastin al soft tissues appear normal. There is no evidence of pleural or pericardial effusion. The lungs are clear. No pulmonary nodules or infiltrates are noted. Images through the upper abdomen reveal no abnormalities. Impression: Lung RADS 1: Negative. 12 month follow-up screening CT advised. Reviewed, dictated and finalized at location . 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 12 month follow-up screening CT advised.
== END 2023-04-25 16:23 | disposition home or self-care (01) ==
LOC: ANHIMG 16:24
PROVIDERS: PCP Physician Assistant; Visit Provider Physician Assistant
DX: Z12.2 Encounter for screening for malignant neoplasm of respiratory organs (principal); F17.210 Nicotine dependence, cigarettes, uncomplicated
CPT/HCPCS: 71271

== ENCOUNTER 2025-02-15 09:50 | Emergency (ER) | payer OTHER, SELFPAY ==
--- NOTE | ~2025-02-15 | CT_ITS ---
CT abdomen pelvis w con Clinical History: diffuse abd pain . Comparison: None Technique: Axial images lung bases to symphysis pubis IV contrast information not listed in PACS Coronal, sagittal reformats CT images acquired with automatic exposure control for dose reduction DLP: 335 mGy-cm Findings: Lung bases: Clear. Visualized heart and pericardium: Unremarkable. Liver: Enlarged. Biliary ductal dilatation after cholecystectomy. Gallbladder: Unremarkable. Spleen: Unremarkable. Pancreas: Unremarkable. Adrenal glands: Unremarkable. Kidneys: Right kidney- No hydronephrosis. No renal stones. Left kidney- No hydronephrosis. No renal stones. Renal vein attenuation by SMA. Distal esophagus/stomach: Unremarkable. Small bowel loops: Normal caliber and wall thickness. A few air-fluid levels. Colon: Normal caliber and wall thickness. Normal RLQ appendix. Liquid contents from diarrheal state Nodes: No enlarged nodes. Peritoneum: No ascites. No free air. Urinary bladder: Unremarkable. Uterus: Removed. Adnexa: No masses. Bones: No acute bony abnormality. Soft tissues: Unremarkable. Aorta: No aneurysm or dissection. IVC: Unremarkable. Main portal vein/SMV/splenic vein: Patent. Perisplenic shunt. IMPRESSION: 1. Diarrheal state and/or minimal enterocolitis. Reviewed, dictated and finalized at location R. 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
[2025-02-15 10:02] VITALS: BP 106/73; PULSE 80; RESP 20; TEMP 36.5; O2SAT 99
--- NOTE | 2025-02-15 10:32 | ED.ABDPAIN ---
HPI - Abdominal Pain General Chief Complaint: Abdominal Pain Stated Complaint: constipation Time Seen by Provider: 02/15/25 10:29 History of Present Illness HPI narrative: 50-year-old female presents emergency department with acute on chronic symptomatic constipation she endorses. Patient states she has had worsening abdominal discomfort and distention for a week. She has tried home enemas without any relief. She denies any nausea vomiting states that the abdominal pain is crampy episodic and intermittent but none currently. She denies any dysuria but endorses some increased urinary frequency. She denies any weight loss, denies any chest pain shortness of breath or fevers. Related Data Home Medications ?Medication ?Instructions ?Recorded ?Confirmed ?Last Taken ?Type fluoxetine 60 mg tablet 60 mg PO DAILY 05/26/19 01/30/22 09/27/19 History levothyroxine 150 mcg tablet 150 mcg PO DAILY 05/26/19 01/30/22 09/28/19 History alprazolam 0.5 mg tablet 0.5 mg PO PRN PRN Anxiety 09/28/19 01/30/22 Unknown History acitretin 25 mg capsule 25 mg PO DIRECTED 01/30/22 01/30/22 Unknown History bupropion HCl 150 mg tablet,12 hr 150 mg PO DAILY 01/30/22 01/30/22 Unknown History sustained-release buspirone 5 mg tablet 5 mg PO DAILY 01/30/22 01/30/22 Unknown History trazodone 100 mg tablet 100 mg PO DAILY 01/30/22 01/30/22 Unknown History Allergies Allergy/AdvReac Type Severity Reaction Status Date / Time propoxyphene Allergy Mild Unknown Verified 02/15/25 14:02 Penicillins Allergy Unknown ITCHING, Verified 02/15/25 14:02 RED BLOTCHES Review of Systems Review of Systems: All systems reviewed & are unremarkable except as noted in HPI and below PMFSH Past Medical History Medical History Thyroid disease Surgical History Surgical History History of thyroid surgery Social History Social History Smoking status: Smoker, status unknown Second hand tobacco smoke exposure: Yes Alcohol intake: never Exam Narrative: EXAMINATION OF ORGAN SYSTEMS/BODY AREAS: Constitutional: Vital signs per nursing GENERAL:[No acute distress, non-toxic appearing.] HEAD: Normal with no signs of head trauma. EYES: EOMI, conjunctiva normal ENT: Hearing grossly intact LUNGS: Nonlabored breathing. HEART: [Regular rate and rhythm] ABD: Exam is soft nondistended but there is some minimal reproducible tenderness without any rebound or guarding EXT: Normal range of motion SKIN: [No rashes or lesions.] NEURO: [Alert. No gross focal sensory or strength deficits.] PSYCH: Normal affect Course Vital Signs Vital signs: Vital Signs Temperature 36.5 C 02/15/25 10:02 Pulse Rate 80 02/15/25 10:02 Respiratory Rate 20 02/15/25 10:02 Blood Pressure 106/73 02/15/25 10:02 Pulse Oximetry 99 02/15/25 10:02 Oxygen Delivery Room Air 02/15/25 10:02 Temperature 37.1 C 02/15/25 10:41 Pulse Rate 67 02/15/25 13:53 Respiratory Rate 16 02/15/25 13:53 Blood Pressure 111/77 02/15/25 13:53 Pulse Oximetry 97 02/15/25 13:53 Oxygen Delivery Room Air 02/15/25 10:[address] [facility] Differential Diagnosis Differential Diagnosis: 50-year-old female presents with abdominal pain. Differential is symptomatic constipation versus diverticulitis versus perforated viscus versus atypical presentation of appendicitis. Will obtain IV access, multimodal pain control IV fluids CT abdomen pelvis IV contrast implant for evaluation of her workup treatment. Results and re-evaluation Patient feels much improved. CT negative for any evidence of obstructive process significant stool burden. Labs reviewed within acceptable limits. I will send her home with stool softeners and otherwise directed follow up herself PCP return sooner for any new or concerning symptoms. All questions answered discharged in stable condition Medical Records I have reviewed the following patient records and this information was taken into consideration when formulating the assessment and plan.: previous labs and previous ER visits Lab Data [facility] Lab Attestation statement: I personally reviewed the patient's lab results. 02/15/25 11:06 02/15/25 11:06 Labs: Lab Results 02/15/25 Range/Units 11:06 WBC 8.1 (4.5-10.0) K/mm3 RBC 4.30 (4.2-5.4) M/mm3 Hgb 13.6 (12.0-15.0) g/dL Hct 40.0 (37.0-47.0) % MCV 93.0 (80-100) fl MCH 31.6 (26-34) pg MCHC 34.0 (32-36) g/dl RDW 12.8 (11.5-14.5) % Plt Count 244 (150-375) k/mm3 MPV 9.0 (7.4-10.4) fl Immature Gran % (Auto) 0.2 (0-0.5) % Neut % (Auto) 63.1 (45.5-73.1) % Lymph % (Auto) 30.2 (18.3-44.2) % [place] % (Auto) 5.3 (2.6-8.5) % Eos % (Auto) 0.7 (0-4.4) % Baso % (Auto) 0.5 (0.2-1.2) % Lymph # (Auto) 2.45 (0.9-3.2) K/mm3 [place] # (Auto) 0.4 (0.1-0.6) K/mm3 Eos # (Auto) 0.1 (0-0.3) K/mm3 Baso # (Auto) 0.0 (0.0-0.1) K/mm3 Abs Immat Gran (auto) 0.02 (0.00-0.031) K/mm3 Absolute Neuts (auto) 5.1 (1.3-6.7) K/mm3 Absolute Nucleated RBC 0.000 (0.0-0.012) K/mm3 Nucleated RBC % 0.0 (0.0-0.2) % PT 13.4 (11.1-14.7) Seconds INR 1.0 Sodium 138 (137-145) mmol/L Potassium 3.9 (3.4-5.0) mmol/L Chloride 107 (98-107) mmol/L Carbon Dioxide 27 (22-30) mmol/L Anion Gap 4 (4-12) mmol/L BUN 9 D (7-17) mg/dL Creatinine 0.70 (0.7-1.0) mg/dL Estim Creat Clear Calc 76 ml/min Estimated GFR > 60 (59 - ) Glucose 87 (65-110) mg/dL Calcium 9.2 (8.4-10.2) mg/dL Total Bilirubin 0.4 (0.2-1.3) mg/dL AST 25 (14-36) U/L ALT 21 (6-35) U/L Alkaline Phosphatase 51 (38-126) U/L Total Protein 6.7 (6.3-8.2) g/dL Albumin 4.1 (3.5-5.1) g/dL Lipase 70 (23-300) U/L Urine Color Yellow (Yellow) Urine Appearance Clear (Clear) Urine pH 5.0 (5.0-9.0) Ur Specific [place] 1.018 (1.001-1.035) Urine Protein Negative (Negative) mg/dL Urine Glucose (UA) Negative (Negative) mg/dL Urine Ketones Negative (Negative) mg/dL Ur Blood (Man) Negative (Negative) Urine Nitrate Negative (Negative) Urine Bilirubin Negative (Negative) Urine Urobilinogen 0.2 (<2.0) mg/dL Leukocyte Esterase Rfl Negative (Negative) NAVIN/UL Imaging Data Attestation: I personally reviewed and interpreted this imaging study as follows: My impression: CT scan negative for any obstruction or free air. Radiologist's impression: ITS Impressions Abdomen/Pelvis CT 02/15/25 12:40 IMPRESSION: 1. Diarrheal state and/or minimal enterocolitis. Discharge Plan Discharge Clinical Impression: Abdominal pain Patient Disposition: Home Condition: Stable Instructions: Antibiotic Form, Abdominal Pain (ED), Enteritis (ED) Patient Language: Kazakh Prescriptions: New dicyclomine 10 mg capsule 10 mg PO BID Qty: 14 0RF No Action buspirone 5 mg tablet 5 mg PO DAILY bupropion HCl 150 mg tablet sustained-release 12 hr 150 mg PO DAILY acitretin 25 mg capsule 25 mg PO DIRECTED trazodone 100 mg tablet 100 mg PO DAILY cyclobenzaprine 10 mg tablet 10 mg PO TID PRN (Reason: muscle spasm) Qty: 15 0RF ibuprofen 800 mg tablet 800 mg PO TID PRN (Reason: pain) Qty: 15 0RF levothyroxine 150 mcg tablet 150 mcg PO DAILY fluoxetine 60 mg tablet 60 mg PO DAILY aspirin [[place] Low Dose Aspirin] 81 mg tablet,delayed release (DR/EC) 81 mg PO DAILY Qty: 30 0RF alprazolam 0.5 mg tablet 0.5 mg PO PRN PRN (Reason: Anxiety) Follow-up/Referrals: Nhung,VINOD Covarrubias [Primary Care Provider, Unknown] Time of Disposition: 14:12
[2025-02-15 10:41] VITALS: BP 120/82; PULSE 71; RESP 16; TEMP 37.1; O2SAT 97
[2025-02-15 11:17] LABS: Hematocrit 40.0 % (37.0-47.0); Hemoglobin 13.6 g/dL (12.0-15.0); Immature Granulocyte Percent A 0.2 % (0-0.5); Lymphocytes Absolute Auto 2.45 K/mm3 (0.9-3.2); Mean Corpuscular HGB Conc 34.0 g/dl (32-36); Mean Corpuscular Hemoglobin 31.6 pg (26-34); Mean Corpuscular Volume 93.0 fl (80-100); Nucleated Red Blood Cells Absolute Auto 0.000 K/mm3 (0.0-0.012); Nucleated Red Blood Cells Perc 0.0 % (0.0-0.2); Platelet Count Result 244 k/mm3 (150-375); Red Blood Count 4.30 M/mm3 (4.2-5.4); White Blood Count 8.1 K/mm3 (4.5-10.0)
[2025-02-15 11:25] LABS: Add Urine Microscopic? NO; Appearance Urine Clear (Clear); Glucose Urine UA Negative (Negative); Leukocyte Esterase Ur Negative LEU/UL (Negative); Nitrate Urine Negative (Negative); Specific Grav Ur 1.018 (1.001-1.035)
[2025-02-15 11:31] LABS: INR 1.0; Prothrombin Time 13.4 Seconds (11.1-14.7)
[2025-02-15 11:41] LABS: Alanine Aminotransferase 21 U/L (6-35); Albumin Level 4.1 g/dL (3.5-5.1); Alkaline Phosphatase 51 U/L (38-126); Anion Gap 4 mmol/L (4-12); Aspartate Amino Transferase 25 U/L (14-36); Bilirubin,Total 0.4 mg/dL (0.2-1.3); Blood Urea Nitrogen 9 mg/dL (7-17); Calcium 9.2 mg/dL (8.4-10.2); Carbon Dioxide 27 mmol/L (22-30); Chloride 107 mmol/L (98-107); Estimated CRCL calculation 76 ml/min; Estimated Glomerular Filt Rate > 60; Glucose 87 mg/dL (65-110); Lipase 70 U/L (23-300); Potassium 3.9 mmol/L (3.4-5.0); Sodium 138 mmol/L (137-145); Total Protein 6.7 g/dL (6.3-8.2)
--- NOTE | 2025-02-15 12:45 | PC.NURSE ---
Pt moved to room [address] scan.
[2025-02-15 13:53] VITALS: BP 111/77; PULSE 67; RESP 16; O2SAT 97
== END 2025-02-15 14:24 | disposition home or self-care (01) ==
PROVIDERS: Emergency Provider Emergency Medicine; PCP Physician Assistant
DX: R10.9 Unspecified abdominal pain (principal); E07.9 Disorder of thyroid, unspecified; K59.09 Other constipation; Z79.899 Other long term (current) drug therapy; Z79.82 Long term (current) use of aspirin; Z77.22 Contact with and (suspected) exposure to environmental tobacco smoke (acute) (chronic)
CPT/HCPCS: 36415; 74177; 80053; 81003; 83690; 85025; 85610; 99284; Q9967